=== PATIENT | male | born 1945 | race Caucasian/White ===

== ENCOUNTER 2021-04-25 09:43 | Day surgery (SDC) | payer MEDICARE ==
[~2021-04-25] VITALS: Ht 180.3 cm; Wt 75.2 kg
[~2021-04-25 09:43] MED LIST: ALBUMIN HUMAN 5% 500 ML IV PRN; ASPI81TA45 PO; ATOR40TA78 PO; CARI350T PO; CEFUROXIME 1.5 GM in SODIUM CHLORIDE 0.9% 50 ML IVPB PRN; DEXMEDETOMIDINE 200 MCG in SODIUM CHLORIDE 0.9% 48 ML IV PRN; EPINEPHRINE 5 MG in SODIUM CHLORIDE 0.9% 245 ML IV PRN; FURO20TA3 PO; HYDR2TAB29 PO; LISI5TAB7 PO; MANNITOL PMX 20% 500 ML IVPB PRN; METO25TA35 PO/NG; NAPR-685 PO; PANT40TA3 PO; PHENYLEPHRINE 50 MG in SODIUM CHLORIDE 0.9% 245 ML IV PRN; PLEASE ENTER HEIGHT AND WEIGHT MC SCH; POTA10TA5 PO; POTASSIUM CHLORIDE 80 MEQ, SODIUM BICARBONATE 8.4% 10 MEQ, MAGNESIUM SULFATE 0.5 GM, LI... IV PRN; PRAV20TA PO; REGULAR INSULIN 100 UNITS in SODIUM CHLORIDE 0.9% 99 ML IV PRN; RIVA20TA PO; SERT100T32 PO; TRAM50TA2 PO; VANCOMYCIN 1,200 MG in SODIUM CHLORIDE 0.9% 250 ML IV PRN; WARF10TA43 PO; WARF7.5T46 PO
[2021-04-25] MEDS ORDERED: LACTATED RINGERS 1,000 ML IV SCH (10:30)
[2021-04-25 10:48] VITALS: BP 117/75
[2021-04-25] MEDS ORDERED: WARF7.5T46 PO ×2 (10:59)
[2021-04-25] MEDS ORDERED: ATOR40TA78 PO (11:02)
[2021-04-25] MEDS ORDERED: WARF-36 PO ×2 (11:02)
[2021-04-25] MEDS ORDERED: LISI2.5T12 PO (11:02)
[2021-04-25] MEDS ORDERED: METO25TA35 PO (11:02)
[2021-04-25 11:04] LABS: INTERNATIONAL NORMALIZED RATIO 1.13 (0.93-1.1)
[2021-04-25] MEDS ORDERED: FENTANYL PF 250 MCG/5ML ONE (11:06)
[2021-04-25] MEDS ORDERED: PROPOFOL 10 MG/ML, 20ML ONE ×3 (11:06)
[2021-04-25] MEDS ORDERED: ACETAMINOPHEN 325 MG TABLET PO PRN ×2 (11:30→12:00)
[2021-04-25] MEDS ORDERED: EPHEDRINE 50 MG/ML, 1ML IM PRN (11:30)
[2021-04-25] MEDS ORDERED: EPHEDRINE 50 MG/ML, 1ML IVPush PRN (11:30)
[2021-04-25] MEDS ORDERED: PROMETHAZINE 25 MG/ML, 1ML IVPush PRN (11:30)
[2021-04-25] MEDS ORDERED: DIPHENHYDRAMINE 50 MG/ML, 1ML IVPush PRN (11:30)
[2021-04-25] MEDS ORDERED: DIAZEPAM 5 MG/ML, 2ML IVPush PRN (11:30)
[2021-04-25] MEDS ORDERED: ONDANSETRON 2MG/ML, 2ML IVPush PRN (11:30)
[2021-04-25] MEDS ORDERED: LABETALOL 5MG/ML, 20ML IV PRN (11:30)
[2021-04-25] MEDS ORDERED: HYDR-2214 PO (11:58)
[2021-04-25] MEDS ORDERED: HYDROcodone/APAP 7.5-325MG/15ML UDC PO PRN (12:00)
[2021-04-25] MEDS ORDERED: ENOXAPARIN 80 MG/0.8 ML SQ ONE (12:00)
[2021-04-25] MEDS ORDERED: FENTANYL PF 100 MCG/2ML ONE (12:06)
[2021-04-25] MEDS: FENTANYL PF 100 MCG/2ML IV PRN ×2 (12:15→12:25)
[2021-04-25] MEDS ORDERED: MORPHINE SULFATE 4 MG/ML, 1ML ONE (12:41)
[2021-04-25] MEDS: morphine SULFATE 10 MG/ML, 1ML IVPush PRN ×2 (12:44→12:51)
[2021-04-25] MEDS ORDERED: DIAZEPAM 5 MG/ML, 2ML ONE (13:17)
[2021-04-25] MEDS ORDERED: METHOCARBAMOL 1,000 MG in DEXTROSE 5% 100 ML IV PRN (13:30)
[2021-04-25] MEDS ORDERED: ENOX80SY5 SQ (14:10)
== END 2021-04-25 15:40 | disposition home or self-care (01) ==
LOC: OR 09:43
PROVIDERS: ATTEND Thoracic Surgery (Cardiothoracic Vascular Surgery)
DX: T84.84XA Pain due to internal orthopedic prosthetic devices, implants and grafts, initial encounter (principal); Y83.8 Other surgical procedures as the cause of abnormal reaction of the patient, or of later complication, without mention of misadventure at the time of the procedure; Z20.822 Contact with and (suspected) exposure to COVID-19; Z88.8 Allergy status to other drugs, medicaments and biological substances; Z79.899 Other long term (current) drug therapy; Z87.891 Personal history of nicotine dependence; Z79.01 Long term (current) use of anticoagulants
CPT/HCPCS: 20680; 36415; 71045; 85610; 87635; 93005; J0171; J0697; J1650; J1815; J2270; J2370; J2704; J2800; J3010; J3360; J3370; J3475; J3480; J7050; J7120; P9045